=== PATIENT | male | born 1975 | race Caucasian/White ===

== ENCOUNTER → 2016-12-05 | Day surgery (SDC) | payer OTHER ==
[~2016-12-05] MED LIST: A/T/S 2% GEL30 GM TOP; AUGMENTIN PO; BYSTOLIC20 MG PO; CIPRO PO; CLARITIN10 M3 PO; CLARITIN10 MG PO; COLACE PO; FLAGYL PO; GABAPENTIN800 MG PO; HYDROCODON-ACE1 EAC5 PO; HYDROCODON-ACE1 EAC9 PO; IRON1 TA1; KEFLEX500 MG PO; LEVAQUIN PO; LEXAPRO PO; LORTAB 7.5-3251 EACH PO; LORTAB 7.5-5001 TAB PO; METRONIDAZOLE PO; PHENERGAN PO; PHENERGAN25 MG PO; PROTONIX PO; SEROQUEL PO; TIZANIDINE HCL4 M1 PO; TRAZODONE HCL150 MG PO; VICODIN 5/500 T1 TAB PO
--- NOTE | ~2016-12-05 | OR ---
Unit #: [id number] #: [id number] Patient: JUANITA CROWELL [id number] [address] [place], [place] [address] [id number] O MR#: [id number] NAME: JUANITA CROWELL ROOM: Date of Procedure: 12/05/2016 Admission Date: 12/05/2016 Surgeon: Redd Gallegos M.D. : 1975 Attending Physician: Redd Gallegos M.D. Primary Care Physician: Tip Cain Jr., A.P.R.N. OPERATIVE REPORT JOB NOTE: VERIFY ADT. PREOPERATIVE DIAGNOSES 1. Nasal obstruction. 2. Septal deviation. 3. Turbinate hypertrophy. POSTOPERATIVE DIAGNOSES 1. Nasal obstruction. 2. Septal deviation. 3. Turbinate hypertrophy. PROCEDURES PERFORMED 1. Septoplasty. 2. Inferior turbinate reduction as well as submucous resection x2. ANESTHESIA General endotracheal anesthesia. COMPLICATIONS None. FINDINGS Included severe septal deviation superiorly to the right, anteriorly to the left and turbinate hypertrophy bilaterally. HISTORY This is a 41-year-old male, who has had a history of nasal trauma in the past with significant nasal obstruction despite medical measures. He presents today for septoplasty and turbinate reduction. DESCRIPTION OF PROCEDURE The patient was placed supine on the operative table. Anesthesia was achieved by general endotracheal anesthesia. The patient was prepped and draped for septoplasty. 1% lidocaine with epinephrine was injected into columella bilaterally as well as the hemitransfixion incision site on the right. Hemitransfixion incision was made with 15 blade and a submucoperichondrial flap was first developed on the right and then on the left. After transecting a portion of septal cartilage anteriorly, an anterior strut of cartilage was left present for support. Deviated portions of the cartilage and bone were then isolated at the midline with the [place] and then, deviated portions were removed with the Clifford Unit #: [id number] #: [id number] Patient: JUANITA CROWELL forceps until there was adequate reduction in septal flaps as a midline. Small amount of flattened cartilage was placed in the midline and then the flaps were approximated with 4-0 plain gut mattress stitch. A 4-0 chromic interrupted was then used to close the hemitransfixion incision site and the turbinates were then reduced with Kivratronic reduction blade in a submucous resection fashion. Boies elevator was then used to outfracture the inferior turbinates bilaterally. Lopez septal splints were placed bilaterally and secured with 2-0 silk stitch. The patient was awakened and transferred to Recovery in stable condition. Dictated by... Dinesh Mir/allen TD: 12/06/2016 08:04 JOB #: [id number] OPERATIVE REPORT Page 1 of 1 X Redd Gallegos MD X PROCEDURE OPERATIVE NOTE
[2016-12-05 10:33] LABS: ALBUMIN SERUM 4.4 g/dL (3.5-5.0); BILIRUBIN,TOTAL 1.3 mg/dL (0.2-2.0); BUN/CREATININE RATIO 13.33; CALCIUM SERUM 9.2 mg/dL (8.4-10.2); CREATININE SERUM 0.9 mg/dL (0.6-1.4); GLOM FILT RATE Estimated 107.2 mL/min (>60); POTASSIUM 4.5 mmol/L (3.5-5.1); PROTEIN TOTAL SERUM 7.7 g/dL (6.0-8.3)
== END | disposition home or self-care (01) ==
LOC: CSUR 07:30
PROVIDERS: Specialist
DX: J34.2 Deviated nasal septum (principal); J34.3 Hypertrophy of nasal turbinates; J32.9 Chronic sinusitis, unspecified; I49.1 Atrial premature depolarization; K21.9 Gastro-esophageal reflux disease without esophagitis; Z88.2 Allergy status to sulfonamides; Z88.1 Allergy status to other antibiotic agents
CPT/HCPCS: 80053; J0131; J1100; J2250; J2405; J3010